=== PATIENT | female | born 1955 | race Caucasian/White ===

== ENCOUNTER 2017-10-27 17:55 | Emergency (ER) | payer OTHER ==
[~2017-10-27] VITALS: Ht 160 cm; Wt 83.9 kg
--- NOTE | 2017-10-27 20:23 | ED EYE COMPLAINT ---
History of Present Illness General Chief Complaint: Eye Problems Stated Complaint: FOREIGN OBJECT IN R EYE Source: patient Exam Limitations: no limitations Vital Signs & Intake/Output Vital Signs & Intake/Output Vital Signs Date Time Temp Pulse Resp B/P B/P Pulse O2 O2 Flow FiO2 Mean Ox Delivery Rate 10/27 2058 98.4 78 18 132/67 96 Room Air ED Intake and Output 10/28 0000 10/27 1200 Intake Total Output Total Balance Patient 185 lb Weight Weight Reported by Patient Measurement Method Allergies Coded Allergies: No Known Allergies (10/27/17) Reconcile Medications Ciprofloxacin HCl/Dexameth (Ciprodex Otic Suspension) 0.3 %-0.1 % DROPS.SUSP 2 GTT OT AD PRN CONJUNCTIVITIS 2 DROPS EVERY TWO HOURS FOR TWO DAYS THEN 2 DROPS EVERY FOUR HOURS WHILE AWAKE FOR 5 DAYS Triage Note: PT TO ED FOR C/C OF R EYE IRRITATION THAT STARTED THIS MORNING AROUND 1000. PT DENIES ANY VISION LOSS BUT PAIN IS MUCH WORSE WHEN LIGHT IS SHINED IN EYE. Triage Nurses Notes Reviewed? yes Onset: Abrupt Duration: constant Timing: recent history Injury Environment: home Severity: moderate Severity Numbers: 5 HPI: Patient is a 62-year-old female who presents emergency room stating that she opened a new box of contact lenses yesterday where she stated that she had left EYE irritation and redness where she states that she removed the contact noted to have partial pieces of the contact lens still in her left eye she states that her left eye completely resolved the pain and redness however today she had acute onset of right eye pain and foreign body in clear watery discharge she removed the contact lens however it was fully intact patient has been irrigating the eye with minimal relief of symptoms. Patient denies any mechanism of injury or trauma or any specific foreign body to the right eye (Rhett Beckett) Past History Travel History Traveled to [place] past 21 day No Medical History Any Pertinent Medical History? none Neurological: NONE EENT: NONE Cardiovascular: NONE Respiratory: NONE Gastrointestinal: NONE Hepatic: NONE Renal: NONE Musculoskeletal: NONE Psychiatric: NONE Endocrine: NONE Blood Disorders: NONE Cancer(s): NONE Surgical History Surgical History: non-contributory Psychosocial History What is your primary language Danish Tobacco Use: Current Daily Use Daily Tobacco Use Amount/Type: => 5 Cigarettes daily ETOH Use: occasional use Illicit Drug Use: denies illicit drug use Family History Hx Contributory? No (Rhett Beckett) Review of Systems Review of Systems Constitutional: Reports: no symptoms. Eyes: Reports: see HPI, drainage, foreign body sensation, inflammation, pain. Ear: Reports: no symptoms. Nose: Reports: no symptoms. Mouth: Reports: no symptoms. Throat: Reports: no symptoms. Respiratory: Reports: no symptoms. Cardiovascular: Reports: no symptoms. GI: Reports: no symptoms. Genitourinary: Reports: no symptoms. Musculoskeletal: Reports: no symptoms. Skin: Reports: no symptoms. Neurological/Psychological: Reports: no symptoms. Hematologic/Endocrine: Reports: no symptoms. Immunologic/Allergic: Reports: no symptoms. All Other Systems: Reviewed and Negative (Rhett Beckett) Physical Exam General Appearance: no apparent distress, alert, comfortable General Inspection: normal inspection Eyelid: normal inspection Conjunctiva/Sclera: normal inspection Cornea: normal inspection EOM: intact Pupil: normal accommodation, normal pupil, PERRL General Inspection: INJECTION OF SCLERA Eyelid: everted for exam, erythema Conjunctiva/Sclera: injected Cornea: normal inspection, examined w/fluorescein, fluorescein dye uptake (NO) EOM: intact Pupil: normal accommodation, normal pupil, PERRL Physical Exam Head: atraumatic Nose: normal inspection Mouth/Throat: dental tenderness Cardiovascular/Respiratory: no respiratory distress Skin: intact, normal color (Rhett Beckett) Progress Differential Diagnosis: corneal abrasion, corneal foreign body, conjunctivitis, detached retina, glaucoma, globe rupture, retinal art./v. occlusion Plan of Care: Due to history of present illness and exam findings or suspicion of a nonvisualized foreign body to the right eye however under physical exam initially no overt findings of foreign body patient was given tetracaine drops with relief of right eye pain no uptake noted after staining She was strongly advised to follow-up with ophthalmology patient with prophylactic clear administered antibiotic drops Please note that I discussed with pharmacy over the phone to prescribed antibiotic ciprofloxacin drops instead of the prescribed optic drops (Rhett Beckett) Departure Departure Disposition: HOME OR SELF CARE Condition: Stable Clinical Impression Primary Impression: Conjunctivitis, right eye Secondary Impressions: Foreign body in eyeball, right Referrals: Marco Antonio GREENWOOD,Iris Zuniga (PCP/Family) Augie GREENWOOD,Zane Weller Additional Instructions: As discussed if symptoms worsen or if YOU develop any new concerning symptom return to emergency ROOM, tomorrow please follow up with 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 Augie. Begin the prescription of Ciprodex eyedrops as directed. Prescriptions waiting at [facility] Departure Forms: Customer Survey General Discharge Information Prescriptions: Current Visit Scripts Ciprofloxacin HCl/Dexameth (Ciprodex Otic Suspension) 2 GTT OT AD PRN CONJUNCTIVITIS #1 BOT 2 DROPS EVERY TWO HOURS FOR TWO DAYS THEN 2 DROPS EVERY FOUR HOURS WHILE AWAKE FOR 5 DAYS (Rhett Beckett) PA/MAIL READER Co-Sign Statement Statement: ED Attending supervision documentation- x I saw and evaluated the patient. I have also reviewed all the pertinent lab results and diagnostic results. I agree with the findings and the plan of care as documented in the PA's/MAIL READER's documentation. [] I have reviewed the ED Record and agree with the PA's/MAIL READER's documentation. [] Additions or exceptions (if any) to the PAs/MAIL READER's note and plan are summarized below: [] (Moody GREENWOOD,Ney)
[2017-10-27 20:59] VITALS: BP 132/67
[2017-10-27] MEDS ORDERED: CIPRODEX OTIC7.5 ML OT (21:20)
== END 2017-10-27 21:30 ==
LOC: ERH 17:55
DX: T15.91XA Foreign body on external eye, part unspecified, right eye, initial encounter (principal); H10.9 Unspecified conjunctivitis